=== PATIENT | female | born 1985 | race Hispanic/Latino ===

== ENCOUNTER 2018-07-09 06:22 | Day surgery (SDC) | payer MEDICAID ==
[2018-07-09 07:28] VITALS: BMI 23.5
[2018-07-09] MEDS ORDERED: ceFAZolin 1 gm in NS 1 GM/100 ML BAG IVPB ONE (07:38)
[2018-07-09] MEDS ORDERED: Propofol 10 mg/ml Inj (20 ML) ONE ×2 (07:44→08:38)
[2018-07-09] MEDS ORDERED: Midazolam 2 MG/2 ML VIAL ONE (07:44)
[2018-07-09] MEDS ORDERED: Ropivacaine 0.5% PF (20 ml) inj INJ ONE (07:49)
[2018-07-09] MEDS ORDERED: Bupivacaine HCl 0.5% PF (10 ml) Inj ONE (07:50)
[2018-07-09] MEDS ORDERED: Bacitracin Ointment 30 GM TUBE ONE (08:40)
--- NOTE | 2018-07-09 08:52 | PCM.ANESB1 ---
Interscalene Block - Brachial Plexus Date of Procedure: 07/09/18 Anesthesiologist: Prem Benjamin Pre-Procedure Diagnosis: cubital tunnel syndrome Post-Procedure Diagnosis: acute postoperative pain Procedure Performed: Interscalene Block of Brachial Plexus Right - Procedure Interscalene Block of Brachial Plexus: This procedure was explained to the patient that it is for post-operative pain management. Consent was obtained after a thorough discussion with the patient regarding the benefits and possible complications of local anesthetic block of the Brachial Plexus at the Interscalene area. The patient was brought to the Operating Room and standard monitors were applied. Time out was held with the circulating nurse to confirm the correct surgery and appropriate block. After applying Oxygen by nasal cannula and administering IV Sedation, the patient's head was gently rotated away from the _RIGHT_operative shoulder and the anterior scalene groove was carefully palpated. The ultrasound transducer was then applied to the skin in the transverse plane and the brachial plexus was visualized lateral to the supraclavicular artery. After identification,the anterior lateral portion of the neck was prepped with chloraprep and Lidocaine 1% was injected subcutaneously for topical analgesia. At this point, a # 22 gauge Stimuplex 2 inches insulated needle was inserted into the interscalene groove and directed in a caudal and midline direction. The needle was inserted lateral to the ultrasound transducer in-plane towards the brachial plexus in a [id number] direction. Needle advancement was performed carefully under direct ultrasound visualization. Nerve stimulator was used and twitched of the affected extremity including the hand, brachialis muscles, biceps,and deltoid was obtained at a current of 0.4 MA. After repeated negative aspiration,__5_cc of_0.5% ropivicaine_were injected and this was followed with _15_cc of_0.5% ropivicaine_. Under ultrasound guidance the local anesthetics were observed surrounding the roots of the brachial plexus. The needle was removed intact. The patient had stable vital signs, was conscious and in no apparent distress. The patient tolerated the supraclavicular block of the bracheal plexus well with stable vital signs and was prepared for subsequent surgery.
[2018-07-09] MEDS ORDERED: HYDROmorphone 0.5 mg/0.5 ml ISec IVP PRN (10:38)
--- NOTE | 2018-07-09 10:44 | PCM.SURG1 ---
Surgeon's Initial Post Op Note - Surgeon's Notes Surgeon: Dr. Carranza Senior Media Director: Mike PGY2 Type of Anesthesia: General LMA, Block Regional (Right brachial plexus) Anesthesia Administered By: Dr. Benjamin Pre-Operative Diagnosis: Cubital tunnel syndrome, carpal tunnel syndrome, median nerve scar Operative Findings: Cubital tunnel syndrome, carpal tunnel syndrome, median nerve scar Post-Operative Diagnosis: Cubital tunnel syndrome, carpal tunnel syndrome, median nerve scar Operation Performed: Cubital tunnel release, carpal tunnel release, median nerve scar excision, removal of hardware, nerve wrap placement, placement of volar splint Specimen/Specimens Removed: radial hardware, median nerve scar, skin scar Estimated Blood Loss: EBL {In ML}: 50 Blood Products Given: N/A Drains Used: No Drains Post-Op Condition: Good Date of Surgery/Procedure: 07/09/18 Time of Surgery/Procedure: 10:45
--- NOTE | 2018-07-09 10:45 | PCM.OP ---
Operative Report - Operative Report Date of Surgery/Procedure: 07/09/18 Time of Surgery/Procedure: 10:45 Surgeon: Dr. Carranza
[2018-07-09 12:22] VITALS: RESP 18; O2SAT 99
[2018-07-09 12:58] VITALS: BP 105/71; PULSE 69; TEMP 98
--- NOTE | 2018-07-17 06:40 | OP ---
PROCEDURE DATE: 07/09/2018 SURGEON: Dixie Carranza MD MANAGER INSPECTION: Vicente Mckeon DO, PGY-2 PREOPERATIVE DIAGNOSES: Right cubital tunnel syndrome, right carpal tunnel syndrome, right median nerve entrapment at the level of the distal one third of forearm, retained distal radius place. POSTOPERATIVE DIAGNOSES: Right cubital tunnel syndrome, right carpal tunnel syndrome, right median nerve entrapment at the level of the distal one third of forearm, retained distal radius place. ANESTHESIA: General endotracheal anesthesia and regional supraclavicular block on the right side. PROCEDURE: Right cubital tunnel release, right carpal tunnel release endoscopic, right median nerve exploration in the of nerve, removal of distal radius plate, placement of the volar splint. SPECIMEN REMOVED: Median nerve scar tissue, skin scar, and hardware. ESTIMATED BLOOD LOSS: 50 mL. COUNTS: Lap, sponge, and needle counts were correct at the end of the case. TOURNIQUET TIME: 78 minutes. CONDITION: The patient was stable upon discharge to Recovery. INDICATIONS FOR SURGERY: The patient is a 33-year-old female who sustained distal radius fracture seven years ago. 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 She also developed cubital tunnel over the ensuing years. Most recently K-wire in her radial styloid had migrated across her forearm and exited along the ulnar side of her wrist. Therefore, the decision was made to remove the remaining plate as well at the time of her surgery. The patient was finally approved and is here for surgery today. DESCRIPTION OF PROCEDURE: The patient was identified in the holding area. The right arm was marked. She was then brought into the operating room, laid supine on the operating room table. Once right supraclavicular block was performed she was placed under LMA anesthesia and then the right arm was placed in the tourniquet and prepped and draped in the usual sterile fashion. Using an Esmarch, the arm was exsanguinated and tourniquet inflated to 250 mm of pressure for a total of 78 minutes. Beginning with the cubital tunnel an incision was made approximately 4 cm in length, fpc between the olecranon and the medial epicondyle. This incision was taken down through the skin and dermis until the medial retinacular ligament was identified. This was divided under direct visualization and using tenotomy scissors the proximal fascia was divided to the level of the intramuscular septum making sure that the ulnar nerve was preserved and uninjured. Distally, the Sharma's ligament was divided until the ulnar nerve was seen diving under the two heads of the flexor carpi ulnaris tendon. The muscle belly itself was divided of its external fascia so that the muscle fibers could be split and additional soft tissue along the deep portion of the FCU tendon was divided again so that the nerve was no longer compressed. The nerve was then neurolysed from inside the group where it was significantly stuck down at the midpoint. Once the nerve was freed up of any scar tissue, flexion and extension of elbow produce no subluxation with the ulnar nerve. The forearm was addressed next. The previous incisional scar of volar wrist and forearm was excised through this distal insertion. Synovial dissector was used to separate any soft tissue attachments to the undersurface of the carpal ligament. Using endoscopic carpal tunnel system the Arthrex system was placed into the carpal tunnel through this incision, and using a retrograde technique the carpal ligament was divided from retrograde to antegrade. After the division, the instrument was easily passed through the carpal ligament and an fibrous connective tissue to the muscle was divided. The median nerve was then explored in the wrist. Careful dissection was performed in order to dissect away scar tissue from the median nerve which was noted to be more radial and more superficial than expected. The palmar cutaneous nerve was likewise noted to be encased in a separate scar tissue and this was slowly divided from the surrounding scar. The amount of nerve that was neurolysed was approximately 7 cm in length. The scar tissue was extended all along the entire previous incisions from her distal radius fracture plate fixation. The FCR and radial artery were retracted radially. Once the median nerve was mobilized the median nerve and all the rest of the flexors were mobilized and removed ulnarly in order to find the radial edge of the pronator quadratus. Using a Bovie the radial side of the pronator quadratus was incised in order to expose the distal radial plate. Using a universal screwdriver set, once the plate was exposed and scar tissue removed, the screws from the shafts and from the distal plate were removed and the plate was removed as well. Bony spurs were then trimmed using either the rasper or the rongeur until smooth surface was noted. The plate was sent to pathology for gross only. Scar tissue from the nerve was also sent to pathology as a separate specimen as well as the skin. The wound was now irrigated and the tourniquet deflated and pressure held at both the wrist and the elbow incision. Any bleeding was controlled with electrocautery. The both incisions were then closed using 4-0 Monocryl to the deep dermis followed by 4-0 Monocryl running subcuticular. Both incisions were then covered with Adaptic, 4x4 gauze, bacitracin, Webril and secured in place with an Jeremias wrap to the elbow. On the wrist, a volar splint was applied and secured in place with an Jeremias wrap. The patient tolerated the procedure well, was extubated on the table, transferred to a stretcher and brought to the recovery room in stable condition. Dixie Carranza MD
== END 2018-07-09 12:45 | disposition home or self-care (01) ==
LOC: C.SDS 06:22
PROVIDERS: ATTEND Plastic Surgery Surgery of the Hand
DX: Z47.2 Encounter for removal of internal fixation device (principal); G56.01 Carpal tunnel syndrome, right upper limb; G56.21 Lesion of ulnar nerve, right upper limb
CPT/HCPCS: 26320; 29848; 64718; 88300; 88305; J0690; J1170; J2250; J2704; J3010